=== PATIENT | female | born 1955 | race Caucasian/White ===

== ENCOUNTER 2018-05-06 22:07 | Inpatient (IN) | payer SELFPAY ==
[2018-05-06 22:49] LABS: ABSOLUTE EOSINOPHILS # (AUTO) 0.1 10^3/uL (0.0-0.6); ABSOLUTE LYMPHOCYTES (AUTO) 1.7 10^3/uL (0.5-4.7); ABSOLUTE MONOCYTES (AUTO) 0.7 10^3/uL (0.1-1.4); ABSOLUTE NEUT (AUTO) 9.1 10^3/uL (1.7-8.2); BASOPHILS % (AUTO) 0.3 % (0-2); HEMATOCRIT 24.6 % (36.0-47.0); HEMOGLOBIN 8.3 g/dL (12.0-15.5); LYMPHOCYTES % (AUTO) 14.9 % (13-45); MEAN CORPUSCULAR HEMOGLOBIN 27.8 pg (27.0-33.4); MEAN CORPUSCULAR HGB CONC 33.9 g/dL (32.0-36.0); MEAN CORPUSCULAR VOLUME 82 fl (80-97); MONOCYTES % (AUTO) 6.2 % (3-13); PLATELET COUNT 388 10^3/uL (150-450); RED BLOOD COUNT 3.01 10^6/uL (3.72-5.28); RED CELL DISTRIBUTION WIDTH 14.1 % (11.5-14.0); SEGMENTED NEUTROPHILS % (AUTO) 77.6 % (42-78); TOTAL CELLS COUNTED % (AUTO) 100 %; WHITE BLOOD COUNT 11.7 10^3/uL (4.0-10.5)
[2018-05-06 23:07] LABS: ALANINE AMINOTRANSFERASE 25 U/L (9-52); ALBUMIN 3.3 g/dL (3.5-5.0); ALKALINE PHOSPHATASE 46 U/L (38-126); ANION GAP 8 (5-19); ASPARTATE AMINO TRANSFERASE 16 U/L (14-36); BILIRUBIN,DIRECT 0.1 mg/dL (0.0-0.4); BILIRUBIN,TOTAL 0.3 mg/dL (0.2-1.3); BLOOD UREA NITROGEN 46 mg/dL (7-20); CALCIUM 8.1 mg/dL (8.4-10.2); CARBON DIOXIDE 23 mmol/L (22-30); CHLORIDE 112 mmol/L (98-107); GLUCOSE 93 mg/dL (75-110); LIPASE 61.4 U/L (23-300); POTASSIUM 4.2 mmol/L (3.6-5.0); SODIUM 142.5 mmol/L (137-145); TOTAL PROTEIN 5.4 g/dL (6.3-8.2)
[2018-05-07] MEDS ORDERED: ONDANSETRON HCL INJ/PF 4 MG/2 ML SDV ONE (00:01)
[2018-05-07] MEDS ORDERED: PANTOPRAZOLE SODIUM 40 MG VIAL IV ONE (00:30)
[2018-05-07] MEDS ORDERED: PANTOPRAZOLE SODIUM 40 MG VIAL IV PRN (00:30)
--- NOTE | 2018-05-07 01:43 | ER Document Report ---
ED General - General Chief Complaint: Abdominal Pain Stated Complaint: ABDOMINAL PAIN Time Seen by Provider: 05/06/18 22:41 Notes: Patient is a 62-year-old female presents with complaint of abdominal pain and feeling lightheaded and feeling as if she is going to pass out. Symptoms started today. She said the only time she had similar symptoms before was 3 years ago when she had an upper GI bleed. She said this occurred in [place]. At that time she had both endoscopy and colonoscopy no source of bleeding was seen. Bleeding had stopped at that time. She is does have a history of Luis Alfredo fundoplication. She said no vomiting. She noticed earlier in the day that she was started have darker colored stools. Patient has no further complaints at this time. Paramedics arrived her house she was hypotensive. They started to bolus her a liter of fluids. Blood pressure has normalized. Past Medical History - Social History Smoking Status: Never Smoker Frequency of alcohol use: None Drug Abuse: None Family History: Reviewed & Not Pertinent Review of Systems - Review of Systems Notes: My Normal Review Basic REVIEW OF SYSTEMS: CONSTITUTIONAL : Denies fever, chills, or sweats. Denies recent illness. RESPIRATORY: Denies cough, cold, or chest congestion. Denies shortness of breath, difficulty breathing, or wheezing. GASTROINTESTINAL: Abdominal pain. Dark stools. GENITOURINARY: Denies difficulty urinating, painful urination, burning, frequency, or blood in urine. MUSCULOSKELETAL: Denies neck or back pain or joint pain or swelling. SKIN: Denies rash or skin lesions. HEMATOLOGIC : Denies easy bruising or bleeding. NEUROLOGICAL: Denies altered mental status or loss of consciousness. Denies headache. Denies weakness or paralysis or loss of use of either side. Denies problems with gait or speech. Denies sensory or motor loss. ALL OTHER SYSTEMS REVIEWED AND NEGATIVE. Physical Exam - Vital signs Vitals: Resp Pulse Ox 18 100 05/06/18 22:15 05/06/18 22:15 - Notes Notes: General Appearance: Well nourished, alert, cooperative, no acute distress, no obvious discomfort. Vitals: reviewed, See vital signs table. Head: no swelling or tenderness to the head Eyes: PERRL, EOMI, Conjuctiva clear Mouth: No decreasd moisture Throat: No tonsillar inflammation, No airway obstruction Neck: Supple, no neck tenderness, No thyromegaly Lungs: No wheezing, No rales, No rhonci, No accessory muscle use, good air exchange bilaterally. Heart: Tachycardic rate, Regular rythm, No murmur, no rub Abdomen: Normal BS, soft, No rigidity, No reproducible abdominal tenderness but patient, No guarding, no rebound, no abdominal masses, no organomegaly Extremities: strength 5/5 in all extremities, good pulses in all extremities, no swelling or tenderness in the extremities, no edema. Skin: warm, dry, appropriate color, no rash Neuro: speech clear, oriented x 3, normal affect, responds appropriately to questions. Course - Re-evaluation Re-evalutation: 05/07/18 02:38 We do not have GI coverage and therefore I did speak with Dr. Sanders, general surgeon. Informed him that she has history of Luis Alfredo fundiplication likely has an upper GI bleed. I want to make sure that he felt comfortable being back up for endoscopy if needed and also Dr. Ernandez would be on in the morning and if he felt that he would also be comfortable. Dr. Sanders said that we can keep the patient here and that they would cover his backup for consult for endoscopy and colonoscopy if needed. 05/07/18 02:40 I did test the case with Dr. Alexander, hospitalist, who agrees to evaluate the patient for admission. He requests patient be placed in an ICU bed. Dictation of this chart was performed using voice recognition software; therefore, there may be some unintended grammatical errors. - Vital Signs Vital signs: Temp Pulse Resp BP Pulse Ox 23 H 119/69 100 05/07/18 00:01 05/07/18 00:01 05/07/18 00:01 - Laboratory Result Diagrams: 05/07/18 01:45 05/06/18 22:30 Laboratory results interpreted by me: 05/06/18 05/06/18 05/07/18 22:30 22:30 01:45 WBC 11.7 H 12.8 H RBC 3.01 L 3.07 L Hgb 8.3 L 8.5 L Hct 24.6 L 24.7 L RDW 14.1 H Absolute Neutrophils 9.1 H 9.4 H Chloride 112 H BUN 46 H Calcium 8.1 L Total Protein 5.4 L Albumin 3.3 L Discharge - Discharge Clinical Impression: GI bleed Qualifiers: GI bleed type/associated pathology: melena Qualified Code(s): K92.1 - Melena Anemia Qualifiers: Anemia type: unspecified type Qualified Code(s): D64.9 - Anemia, unspecified Condition: Stable Disposition: ADMITTED OBSERVATION Admitting Provider: Hospitalist Unit Admitted: ICU
[2018-05-07 02:02] LABS: ABSOLUTE BASOPHILS # (AUTO) 0.1 10^3/uL (0.0-0.2); ABSOLUTE EOSINOPHILS # (AUTO) 0.1 10^3/uL (0.0-0.6); ABSOLUTE LYMPHOCYTES (AUTO) 2.6 10^3/uL (0.5-4.7); ABSOLUTE MONOCYTES (AUTO) 0.6 10^3/uL (0.1-1.4); ABSOLUTE NEUT (AUTO) 9.4 10^3/uL (1.7-8.2); EOSINOPHILS % (AUTO) 0.6 % (0-6); HEMATOCRIT 24.7 % (36.0-47.0); HEMOGLOBIN 8.5 g/dL (12.0-15.5); MEAN CORPUSCULAR HEMOGLOBIN 27.8 pg (27.0-33.4); MEAN CORPUSCULAR HGB CONC 34.5 g/dL (32.0-36.0); MEAN CORPUSCULAR VOLUME 81 fl (80-97); MONOCYTES % (AUTO) 4.9 % (3-13); PLATELET COUNT 383 10^3/uL (150-450); RED BLOOD COUNT 3.07 10^6/uL (3.72-5.28); RED CELL DISTRIBUTION WIDTH 13.9 % (11.5-14.0); SEGMENTED NEUTROPHILS % (AUTO) 73.5 % (42-78); TOTAL CELLS COUNTED % (AUTO) 100 %; WHITE BLOOD COUNT 12.8 10^3/uL (4.0-10.5)
--- NOTE | 2018-05-07 02:11 | RADIOLOGY REPORT (SQ) ---
EXAM DESCRIPTION: XR ABDOMEN SUPINE AND ERECT WITH CHEST (ABD ACUTE SERIES) COMPLETED DATE/TME: 05/07/2018 00:30 CLINICAL HISTORY: 62 years, Female, abdominal pain COMPARISON: None. NUMBER OF VIEWS: Four TECHNIQUE: AP view of the chest with supine and upright images of the abdomen LIMITATIONS: None. FINDINGS: The lungs are clear. The heart is normal in size. There is no pneumothorax or pleural effusion. There is no intraperitoneal free air. No dilated loops of small bowel are identified. Cholecystectomy clips are present. There are no abnormal calcifications. There are postsurgical changes along the left upper quadrant. IMPRESSION: No acute cardiopulmonary abnormality. Nonobstructive bowel gas pattern copyright 2010 [email or web address]- All Rights Reserved
[2018-05-07] MEDS ORDERED: ACETAMINOPHEN 650 MG SUPP.RECT PR PRN (02:51)
[2018-05-07] MEDS ORDERED: IPRATROPIUM/ALBUTEROL 0.5-2.5 MG/3 ML AMPUL NEB PRN (02:51)
[2018-05-07] MEDS ORDERED: NORMAL SALINE 250 ML IV PRN ×3 (02:56→09:04)
[2018-05-07] MEDS ORDERED: NORMAL SALINE 1000 ML 1,000 ML IV PRN (03:00)
[2018-05-07 03:07] LABS: INTERNATIONAL RATION (INR) 0.96; PROTHROMBIN TIME 13.3 SEC (11.4-15.4)
[2018-05-07 03:11] LABS: RETICULOCYTE COUNT (AUTO) 4.19 % (0.66-2.85)
[2018-05-07 03:18] LABS: IRON(TIBC) 153.1 ug/dL (37-170)
[2018-05-07 04:26] LABS: FOLATE 8.06 ng/mL (>2.76)
--- NOTE | 2018-05-07 04:54 | PDOC H&P ---
History of Present Illness Admission Date/PCP: 05/07/18 03:03 Patient complains of: Abdominal pain and black stool History of Present Illness: MICKEY FLORES is a 62 year old female with a past medical history of reactive airway disease, hypothyroidism, hypertension, Luis Alfredo fundoplication and subsequent GI bleed without definitive source. Patient presents 4 days after the onset of black stools followed by 48 hours of epigastric pain and nausea without vomiting. In the emergency room she is found to have persistent epigastric pain, BUN of 46, creatinine 0.6, Hemoccult stool and a hemoglobin of only 8.5. Her last known hemoglobin was 10 within the year. She is started on IV Protonix and referred to the hospitalist for admission. Patient does admit t o recent NSAID use for headache approximately 4 days ago. She otherwise denies changes in medications. Past Medical History Pulmonary Medical History: Reports: Asthma EENT Medical History: Reports: None Neurological Medical History: Reports: None Endocrine Medical History: Reports: None Renal/ Medical History: Reports: None Malignancy Medical History: Reports: None GI Medical History: Reports: Gastroesophageal Reflux Disease, Other - GI bleed Musculoskeltal Medical History: Reports: None Skin Medical History: Reports: None Psychiatric Medical History: Reports: None Traumatic Medical History: Reports: None Hematology: Reports: None Infectious Medical History: Reports: None Past Surgical History Past Surgical History: Reports: Cholecystectomy, Other - Luis Alfredo fundoplication Social History Information Source: Patient Smoking Status: Never Smoker Drugs: None - Advance Directive Resuscitation Status: Full Code Family History Family History: Hypertension Parental Family History Reviewed: Yes Children Family History Reviewed: Yes Sibling(s) Family History Reviewed.: Yes Physical Exam Vital Signs: Temp Pulse Resp BP Pulse Ox 19 127/70 H 99 05/07/18 04:00 05/07/18 02:00 05/07/18 04:00 General appearance: PRESENT: cooperative, mild distress, obese, well-developed, well-nourished Head exam: PRESENT: atraumatic, normocephalic Eye exam: PRESENT: conjunctiva pink, EOMI, PERRLA. ABSENT: scleral icterus Ear exam: PRESENT: normal external ear exam Mouth exam: PRESENT: moist, tongue midline Neck exam: ABSENT: carotid bruit, JVD, lymphadenopathy, thyromegaly Respiratory exam: PRESENT: clear to auscultation patience. ABSENT: rales, rhonchi, wheezes Cardiovascular exam: PRESENT: RRR. ABSENT: diastolic murmur, rubs, systolic murmur Pulses: PRESENT: normal dorsalis pedis pul Vascular exam: PRESENT: normal capillary refill GI/Abdominal exam: PRESENT: diminished bowel sounds, distended, hypoactive bowel sounds, normal bowel sounds, soft, tenderness. ABSENT: firm, guarding, mass, organolmegaly, rebound Rectal exam: PRESENT: deferred Extremities exam: PRESENT: full ROM. ABSENT: calf tenderness, clubbing, pedal edema Neurological exam: PRESENT: alert, awake, oriented to person, oriented to place, oriented to time, oriented to situation, CN II-XII grossly intact. ABSENT: motor sensory deficit Psychiatric exam: PRESENT: appropriate affect, normal mood. ABSENT: homicidal ideation, suicidal ideation Skin exam: PRESENT: dry, intact, warm. ABSENT: cyanosis, rash Results Laboratory Results: 05/07/18 01:45 05/06/18 22:30 05/06/18 05/06/18 05/06/18 22:30 22:30 22:30 WBC 11.7 H RBC 3.01 L Hgb 8.3 L Hct 24.6 L MCV 82 MCH 27.8 MCHC 33.9 RDW 14.1 H Plt Count 388 Seg Neutrophils % 77.6 Lymphocytes % 14.9 Monocytes % 6.2 Eosinophils % 1.0 Basophils % 0.3 Absolute Neutrophils 9.1 H Absolute Lymphocytes 1.7 Absolute Monocytes 0.7 Absolute Eosinophils 0.1 Absolute Basophils 0.0 Retic Count (auto) Absolute Retic Sodium 142.5 Potassium 4.2 Chloride 112 H Carbon Dioxide 23 Anion Gap 8 BUN 46 H Creatinine 0.69 Est GFR ( Amer) > 60 Est GFR (Non-Af Amer) > 60 Glucose 93 Lactic Acid Calcium 8.1 L Iron TIBC % Saturation Ferritin Total Bilirubin 0.3 AST 16 ALT 25 Alkaline Phosphatase 46 Total Protein 5.4 L Albumin 3.3 L Lipase 61.4 Vitamin B12 Folate Blood Type A POSITIVE Antibody Screen NEGATIVE 05/06/18 05/06/18 05/06/18 22:30 22:55 23:27 WBC RBC Hgb Hct MCV MCH MCHC RDW Plt Count Seg Neutrophils % Lymphocytes % Monocytes % Eosinophils % Basophils % Absolute Neutrophils Absolute Lymphocytes Absolute Monocytes Absolute Eosinophils Absolute Basophils Retic Count (auto) Absolute Retic Sodium Potassium Chloride Carbon Dioxide Anion Gap BUN Creatinine Est GFR ( Amer) Est GFR (Non-Af Amer) Glucose Lactic Acid Cancelled 2.0 Calcium Iron 153.1 TIBC 340 % Saturation 45 Ferritin 22.90 Total Bilirubin AST ALT Alkaline Phosphatase Total Protein Albumin Lipase Vitamin B12 302.0 Folate 8.06 Blood Type Antibody Screen 05/07/18 05/07/18 01:45 01:45 WBC 12.8 H Cancelled RBC 3.07 L Cancelled Hgb 8.5 L Cancelled Hct 24.7 L Cancelled MCV 81 Cancelled MCH 27.8 Cancelled MCHC 34.5 Cancelled RDW 13.9 Cancelled Plt Count 383 Cancelled Seg Neutrophils % 73.5 Cancelled Lymphocytes % 20.0 Cancelled Monocytes % 4.9 Cancelled Eosinophils % 0.6 Cancelled Basophils % 1.0 Cancelled Absolute Neutrophils 9.4 H Cancelled Absolute Lymphocytes 2.6 Cancelled Absolute Monocytes 0.6 Cancelled Absolute Eosinophils 0.1 Cancelled Absolute Basophils 0.1 Cancelled Retic Count (auto) 4.19 H Absolute Retic 0.130 H Sodium Potassium Chloride Carbon Dioxide Anion Gap BUN Creatinine Est GFR ( Amer) Est GFR (Non-Af Amer) Glucose Lactic Acid Calcium Iron TIBC % Saturation Ferritin Total Bilirubin AST ALT Alkaline Phosphatase Total Protein Albumin Lipase Vitamin B12 Folate Blood Type Antibody Screen Impressions: Acute Abdomen Series 05/07/18 00:30 IMPRESSION: No acute cardiopulmonary abnormality. Nonobstructive bowel gas pattern copyright 2011 [employer]- All Rights Reserved Assessment & Plan - Diagnosis (1) GI bleed Qualifiers: GI bleed type/associated pathology: melena Qualified Code(s): K92.1 - Melena Is this a current diagnosis for this admission?: Yes Plan: Labs and history suggestive of upper GI bleed, complicated by Luis Alfredo fundoplication, continue IV Protonix, follow-up serial CBC and surgical consult. (2) Anemia Qualifiers: Anemia type: unspecified type Qualified Code(s): D64.9 - Anemia, unspecified Is this a current diagnosis for this admission?: Yes Plan: Secondary to acute hemorrhage, patient typed and screened for packed red blood cells. - Time Time Spent: 50 to 70 Minutes - Inpatient Certification Medical Necessity: Need Close Monitoring Due to Risk of Patient Decompensation
[2018-05-07] MEDS ORDERED: FENTANYL CITRATE INJ/PF 100 MCG/2 ML AMPUL IV PRN (04:55)
[2018-05-07 08:14] LABS: ABSOLUTE EOSINOPHILS # (AUTO) 0.1 10^3/uL (0.0-0.6); ABSOLUTE LYMPHOCYTES (AUTO) 1.9 10^3/uL (0.5-4.7); ABSOLUTE MONOCYTES (AUTO) 0.5 10^3/uL (0.1-1.4); ABSOLUTE NEUT (AUTO) 4.8 10^3/uL (1.7-8.2); BASOPHILS % (AUTO) 0.4 % (0-2); EOSINOPHILS % (AUTO) 1.4 % (0-6); HEMATOCRIT 20.3 % (36.0-47.0); LYMPHOCYTES % (AUTO) 26.3 % (13-45); MEAN CORPUSCULAR HEMOGLOBIN 27.5 pg (27.0-33.4); MEAN CORPUSCULAR VOLUME 81 fl (80-97); PLATELET COUNT 273 10^3/uL (150-450); RED BLOOD COUNT 2.51 10^6/uL (3.72-5.28); SEGMENTED NEUTROPHILS % (AUTO) 64.9 % (42-78); TOTAL CELLS COUNTED % (AUTO) 100 %; WHITE BLOOD COUNT 7.4 10^3/uL (4.0-10.5)
[2018-05-07 08:19] LABS: HEMOGLOBIN 6.9 g/dL (12.0-15.5)
--- NOTE | 2018-05-07 08:37 | EKG REPORT ---
SEVERITY:- BORDERLINE ECG - SINUS TACHYCARDIA BORDERLINE T ABNORMALITIES, ANT-LAT LEADS : Confirmed by: Maryam Reeves MD 07-May-2018 08:36:42
[2018-05-07 15:43] LABS: ABSOLUTE EOSINOPHILS # (AUTO) 0.2 10^3/uL (0.0-0.6); ABSOLUTE LYMPHOCYTES (AUTO) 1.9 10^3/uL (0.5-4.7); ABSOLUTE MONOCYTES (AUTO) 0.3 10^3/uL (0.1-1.4); ABSOLUTE NEUT (AUTO) 4.2 10^3/uL (1.7-8.2); BASOPHILS % (AUTO) 0.6 % (0-2); EOSINOPHILS % (AUTO) 2.8 % (0-6); HEMATOCRIT 24.9 % (36.0-47.0); HEMOGLOBIN 8.4 g/dL (12.0-15.5); LYMPHOCYTES % (AUTO) 28.4 % (13-45); MEAN CORPUSCULAR HEMOGLOBIN 28.2 pg (27.0-33.4); MEAN CORPUSCULAR HGB CONC 33.9 g/dL (32.0-36.0); MEAN CORPUSCULAR VOLUME 83 fl (80-97); MONOCYTES % (AUTO) 4.8 % (3-13); PLATELET COUNT 220 10^3/uL (150-450); RED BLOOD COUNT 2.99 10^6/uL (3.72-5.28); RED CELL DISTRIBUTION WIDTH 16.3 % (11.5-14.0); SEGMENTED NEUTROPHILS % (AUTO) 63.4 % (42-78); TOTAL CELLS COUNTED % (AUTO) 100 %; WHITE BLOOD COUNT 6.7 10^3/uL (4.0-10.5)
[2018-05-07 17:12] VITALS: BP 137/71
== END 2018-05-07 16:34 | disposition left against medical advice (07) | DRG 378 ==
LOC: ER 22:07 → OBSVTOIN 05-07 03:03 → EH 05-07 03:03
PROVIDERS: ADMIT Internal Medicine; ATTEND Internal Medicine
PROC: 30253N1 (ICD-10-PCS; principal; 2018-05-07)
DX: K92.1 Melena (principal); D62 Acute posthemorrhagic anemia; K21.9 Gastro-esophageal reflux disease without esophagitis; I10 Essential (primary) hypertension; E03.9 Hypothyroidism, unspecified; J45.909 Unspecified asthma, uncomplicated; I95.9 Hypotension, unspecified; Z90.49 Acquired absence of other specified parts of digestive tract; Z98.890 Other specified postprocedural states
CPT/HCPCS: 36415; 36430; 74022; 80053; 82607; 82728; 82746; 83540; 83550; 83605; 83690; 85025; 85045; 85610; 86850; 86900; 86901; 86920; 93005; 93010; 96361; 96365; 96366; 96375; 99285; J2405; J7030; P9016; S0164